=== PATIENT | female | born 1970 | race African-American/Black ===

== ENCOUNTER 2018-01-05 13:05 | Outpatient (CLI) | payer OTHER ==
--- NOTE | 2018-01-05 17:42 | ULT ---
LEFT BREAST ULTRASOUND: 01/05/18 HISTORY: Abnormal mammogram. Palpable abnormality. COMPARISON: Mammogram same day. FINDINGS: Corresponding to the palpable abnormality is a well defined wider than tall cyst. The patient has dexter n over this area. This measures 2.2 x 1.2 cm. IMPRESSION: BIRADS 2: Benign Finding(s) Routine annual screening mammography (for women over age 40). Continued annual mammographic screening is recommended. If patient continues to have pain, an ultras ound guided aspiration can be performed for the patient's pain benefit. POS: OFF
== END 2018-01-05 13:06 | disposition home or self-care (01) ==
LOC: BICMAMMO 13:05
PROVIDERS: ATTEND Nurse Practitioner Family
DX: R92.8 Other abnormal and inconclusive findings on diagnostic imaging of breast (principal)
CPT/HCPCS: 77066; G0279

== ENCOUNTER 2018-01-08 08:07 | Outpatient (CLI) | payer OTHER ==
--- NOTE | 2018-01-08 10:34 | ULT ---
THYROID SONOGRAM: HISTORY: Hyperthyroidism. FINDINGS: Right thyroid lobe is 5.1 cm length. At the inferior pole are 2 small hypoechoic lesions measuring u p to 1.7 cm. The isthmus is 0.3 cm. The left thyroid lobe is 4.7 cm with multiple small solid and cystic nodules. The largest is a compl ex cystic lesion centrally that measures up to 0.7 cm. IMPRESSION: Multiple small nonspecific bilateral thyroid lobe nodules without a dominant aggressive lesion. POS: PAUL
--- NOTE | 2018-01-09 09:59 | NM ---
RADIOIODINE THYROID UPTAKE AND SCAN: HISTORY: 47-year-old female with thyrotoxicosis, unspecified, without thyrotoxic crisis. TSH on 12/14/17 was l ess than 0.0025. RADIOPHARMACEUTICAL: 260 microcuries Iodine-123 administered orally. FINDINGS: There is homogeneous tracer distribution in the thyroid gland without focal hot or cold nodules. The 24 hour uptake measures 45%. IMPRESSION: Findings are consistent with hyperthyroid Graves' disease. POS: PAUL
== END 2018-01-08 08:08 | disposition home or self-care (01) ==
LOC: ULT 08:07
PROVIDERS: ATTEND Nurse Practitioner Family
DX: E05.90 Thyrotoxicosis, unspecified without thyrotoxic crisis or storm (principal); E04.2 Nontoxic multinodular goiter
CPT/HCPCS: 76536; 78014; A9516

== ENCOUNTER 2018-09-25 16:40 | Emergency (ER) | payer OTHER, SELFPAY ==
[2018-09-25] MEDS ORDERED: Ondansetron PF 4 MG/2 ML Vial ONE (18:22)
[2018-09-25 18:41] LABS: #Basophils 0.1 thou/uL (0.0-0.2); #Eosinphils 0.1 thou/uL (0.0-0.7); #Lymphocytes 1.7 thou/uL (1.20-3.40); #Monocytes 0.3 thou/uL (0.11-0.59); #Neutrophils 9.3 thou/uL (1.40-6.50); %Basophils 0.6 % (0.0-1.0); %Eosinophils 1.1 % (0.0-10.0); %Monocytes 2.8 % (0.0-10.0); %Neutrophils 80.5 % (42.0-75.0); Hemoglobin 12.4 g/dL (12.0-16.0); Mean Corpuscular HGB CONC 32.7 g/dL (32.0-36.0); Mean Corpuscular Hemoglobin 27.2 pg (27.0-31.0); Mean Corpuscular Volume 83.3 fL (78.0-98.0); Mean Platelet Volume 8.1 fL (7.4-10.4); Platelet Count 296 thou/uL (130-400); RBC Distribution Width 14.6 % (11.5-14.5); Red Blood Cell (RBC) Count 4.57 mill/uL (4.20-5.40); White Blood Cell (WBC) Count 11.5 thou/uL (4.8-10.8)
[2018-09-25 18:51] LABS: Bilirubin Negative (Negative); Blood, Urine 1+ (Negative); Clarity Clear (Clear); Glucose, Urine (Dipstick) Normal (Negative); Leukocyte Negative Leu/uL (Negative); Nitrite Negative (Negative); Protein, Urine (Dipstick) 10 mg/dL (Neg-Trace); Squamous Epithelial 0-3 HPF (0-3); Urobilinogen Normal mg/dL (Less than 2)
[2018-09-25 18:56] LABS: BHCG - Serum Negative (NEGATIVE); Pregs Control Background? CLEAR/WHITE (CLR/WHITE); Pregs Control Bar Appear? YES (CONTROL BAR)
[2018-09-25 18:58] LABS: Bacteria/HPF None Seen HPF (None Seen)
[2018-09-25 19:04] LABS: ALT (SGPT) 19 U/L (8-55); AST (SGOT) 15 U/L (5-34); Albumin 4.2 g/dL (3.5-5.0); Alkaline Phosphatase 147 U/L (40-150); Anion Gap 12 mmol/L (10-20); BUN (Urea Nitrogen) 8 mg/dL (7.0-18.7); Bilirubin, Total 0.7 mg/dL (0.2-1.2); Calc. Creatinine Clearance 0 mL/min (70-130); Calcium 9.8 mg/dL (7.8-10.44); Carbon Dioxide 23 mmol/L (22-29); Chloride 107 mmol/L (98-107); Estimated GFR-MDRD Greater than 90; Globulin 3.2 g/dL (2.4-3.5); Glucose 98 mg/dL (70-105); Lipase 20 U/L (8-78); Potassium 3.3 mmol/L (3.5-5.1); Protein, Total 7.4 g/dL (6.0-8.3); Sodium 139 mmol/L (136-145)
== END 2018-09-25 20:10 | disposition home or self-care (01) ==
LOC: ERS 16:40
DX: R10.9 Unspecified abdominal pain (principal); R19.7 Diarrhea, unspecified; R11.2 Nausea with vomiting, unspecified; J45.909 Unspecified asthma, uncomplicated; F17.210 Nicotine dependence, cigarettes, uncomplicated; I10 Essential (primary) hypertension
CPT/HCPCS: 80053; 81003; 81015; 82274; 83630; 83690; 84703; 85025; 87045; 87046; 87449; 87899; 96361; 96372; 96374; J0500; J2405

== ENCOUNTER 2019-05-24 10:42 | Outpatient (CLI) | payer SELFPAY ==
--- NOTE | 2019-05-24 13:15 | RAD ---
SUPINE ABDOMEN: Date: 05/24/2019 INDICATION: Epigastric pain. FINDINGS: Scattered stool and gas throughout the colon. The bowel gas pattern is unremarkable. Post cholecystec verónica clips. No mass or abnormal calcification. IMPRESSION: Unremarkable bowel gas pattern. POS: PAUL
[2019-05-27 17:37] LABS: H. pylori IgA ABS 11.9 units (0.0-8.9); H. pylori IgG ABS 5.93 (0.00-0.79); H. pylori IgM ABS Less than 9.0 units (0.0-8.9)
== END 2019-05-24 10:43 | disposition home or self-care (01) ==
LOC: SCSRAD 10:42
PROVIDERS: ATTEND Nurse Practitioner Family
DX: R10.13 Epigastric pain (principal)
CPT/HCPCS: 36415; 74018

== ENCOUNTER 2019-07-05 10:19 | Outpatient (CLI) | payer OTHER ==
--- NOTE | 2019-07-05 11:01 | MMO ---
Bilateral MAMMO Bilat Diag [facility]. CLINICAL HISTORY: Patient is 49 years old and is seen for diagnostic exam and palpable abnormality in the left breast. The patient has no family history of breast cancer. The patient has no personal history of cancer. VIEWS: The views performed were: bilateral craniocaudal with tomosynthesis; bilateral mediolateral oblique with tomosynthesis; bilateral mediolateral with tomosynthesis; and left mediolateral. FILMS COMPARED: The present examination has been compared to prior imaging studies performed at [facility] on 07/13/2011, 01/05/2018 and 07/05/2019. This study has been interpreted with the assistance of computer-aided detection. MAMMOGRAM FINDINGS: The breasts are heterogeneously dense, which could obscure a lesion on mammography. There is an equal density, lobular mass measuring 30 millimeters seen in the left breast at 2 o'clock. Mass correlates to the palpable abnormality in the left breast at 2 o'clock. The mass was shown to be a cyst on ultrasound. Multiple cysts seen in the upper outer quadrant of the left breast in the region of palpable abnormality. (see ultrasound report for sizes) There are no suspicious masses, suspicious calcifications, or new areas of architectural distortion. IMPRESSION: THERE IS NO MAMMOGRAPHIC EVIDENCE OF MALIGNANCY. THE FINDINGS AND RECOMMENDATIONS WERE DISCUSSED WITH THE PATIENT PRIOR TO HER LEAVING THE CENTER. A ROUTINE FOLLOW-UP MAMMOGRAM IN 1 YEAR IS RECOMMENDED. THE RESULTS OF THIS EXAM WERE SENT TO THE PATIENT. ACR BI-RADS Category 2 - Benign finding MAMMOGRAPHY NOTE: 1. A negative mammogram report should not delay a biopsy if a dominant of clinically suspicious mass is present. 2. Approximately 10% to 15% of breast cancers are not detected by mammography. 3. Adenosis and dense breasts may obscure an underlying neoplasm. Reported by: TRAVIS GRANDE MD Electonically Signed: [id number]
--- NOTE | 2019-07-05 14:04 | ULT ---
LEFT BREAST DIAGNOSTIC ULTRASOUND: 07/05/19 INDICATION: New palpable abnormality of the left breast 2 o'clock position. COMPARISON: Prior diagnostic evaluation, 01/05/18. FINDINGS: Corresponding to the palpable region of interest are multiple cysts. The two largest measure 3.2 x 1. 6 cm and 2.2 x 1.5 cm. IMPRESSION: BIRADS 2: Benign Finding(s) Routine annual screening mammography (for women over age 40). Multiple large cysts seen within the palpable region of interest.
== END 2019-07-05 10:20 | disposition home or self-care (01) ==
LOC: BICMAMMO 10:19
PROVIDERS: ATTEND Nurse Practitioner Family
DX: N63.20 Unspecified lump in the left breast, unspecified quadrant (principal); N60.02 Solitary cyst of left breast
CPT/HCPCS: 77066; G0279

== ENCOUNTER 2021-12-14 09:02 | Outpatient (CLI) | payer OTHER | END 2021-12-14 09:03 | disposition home or self-care (01) | LOC: NM 09:02 | PROVIDERS: ATTEND Nurse Practitioner Family | DX: E05.90 Thyrotoxicosis, unspecified without thyrotoxic crisis or storm (principal); E04.1 Nontoxic single thyroid nodule | CPT/HCPCS: 76536; 78014 ==

== ENCOUNTER 2022-02-02 22:05 | Inpatient (IN) | payer OTHER ==
[2022-02-02 22:35] LABS: Hemoglobin 13.2 g/dL (12.0-16.0); Mean Corpuscular HGB CONC 33.6 g/dL (32.0-36.0); Mean Corpuscular Hemoglobin 28.4 pg (27.0-31.0); Mean Corpuscular Volume 84.5 fl (78.0-98.0); Mean Platelet Volume 8.1 fL (7.4-10.4); Platelet Count 283 10x3/uL (130-400); RBC Distribution Width 14.1 % (11.5-14.5); Red Blood Cell (RBC) Count 4.64 mill/uL (4.20-5.40); White Blood Cell (WBC) Count 19.6 10x3/uL (4.8-10.8)
[2022-02-02 22:55] LABS: ALT (SGPT) 12 U/L (8-55); AST (SGOT) 13 U/L (5-34); Albumin 4.4 g/dL (3.5-5.0); Alkaline Phosphatase 153 U/L (40-110); Anion Gap 10 mmol/L (10-20); BUN (Urea Nitrogen) 8 mg/dL (7.0-18.7); Bilirubin, Total 0.6 mg/dL (0.2-1.2); Calc. Creatinine Clearance 0 mL/min (70-130); Calcium 9.4 mg/dL (7.8-10.44); Carbon Dioxide 25 mmol/L (22-29); Chloride 107 mmol/L (98-107); Estimated GFR 93; Globulin 3.2 g/dL (2.4-3.5); Glucose 107 mg/dL (70-105); Potassium 3.2 mmol/L (3.5-5.1); Protein, Total 7.6 g/dL (6.0-8.3); Sodium 139 mmol/L (136-145)
[2022-02-02 23:03] LABS: Band 1 % (5-11); Lymphocytes 54 % (21-51); MDiff Complete? YES; Monocytes 3 % (0-10); Neutrophil 42 % (42-75); Platelet Morphology Comment Appears Adequate; RBC Morphology Normal
[2022-02-03] MEDS ORDERED: Aspirin Chewable 81 MG TAB ONE (00:22)
[2022-02-03] MEDS ORDERED: Nitroglycerin 0.4 MG TAB 1 EACH ONE (00:22)
[2022-02-03] MEDS ORDERED: Propranolol 60 MG TAB PO SCH (00:30)
[2022-02-03] MEDS ORDERED: Acetaminophen 325 MG TAB PO PRN (01:47)
[2022-02-03] MEDS ORDERED: HYDROcodone/Acetaminophen 5/325 mg Tablet PO PRN (01:47)
[2022-02-03] MEDS ORDERED: Methimazole 10 MG TAB PO SCH ×6 (02:00→06:00)
[2022-02-03] MEDS ORDERED: Hydrocortisone Sod Succ/PF 100 mg/2 ml Vial IVP SCH ×4 (02:00→10:00)
[2022-02-03 02:03] LABS: Troponin I 0.014 ng/mL (< 0.028)
[2022-02-03] MEDS: Hydrocortisone Sod Succ/PF 100 mg/2 ml Vial IVP SCH ×2 (02:40→02:41)
[2022-02-03 02:45] VITALS: BMI 31.2
[2022-02-03] MEDS ORDERED: Morphine 4 MG/ML VIAL SLOW IVP PRN (03:03)
[2022-02-03 03:09] LABS: Free T4 (Free Thyroxine) 1.08 ng/dL (0.70-1.48)
[2022-02-03 04:34] LABS: #Basophils 0.1 thou/uL (0.0-0.2); #Eosinphils 0.1 thou/uL (0.0-0.7); #Lymphocytes 3.7 thou/uL (1.20-3.40); #Monocytes 0.2 thou/uL (0.11-0.59); #Neutrophils 9.5 thou/uL (1.40-6.50); %Basophils 0.8 % (0.0-1.0); %Eosinophils 0.7 % (0.0-10.0); %Lymphocytes 27.3 % (21.0-51.0); %Monocytes 1.7 % (0.0-10.0); %Neutrophils 69.5 % (42.0-75.0); Hemoglobin 11.4 g/dL (12.0-16.0); Mean Corpuscular HGB CONC 33.1 g/dL (32.0-36.0); Mean Corpuscular Hemoglobin 28.3 pg (27.0-31.0); Mean Corpuscular Volume 85.5 fl (78.0-98.0); Mean Platelet Volume 7.8 fL (7.4-10.4); Platelet Count 231 10x3/uL (130-400); RBC Distribution Width 14.1 % (11.5-14.5); Red Blood Cell (RBC) Count 4.02 mill/uL (4.20-5.40); White Blood Cell (WBC) Count 13.7 10x3/uL (4.8-10.8)
[2022-02-03 04:50] LABS: ALT (SGPT) 10 U/L (8-55); AST (SGOT) 11 U/L (5-34); Albumin 3.8 g/dL (3.5-5.0); Alkaline Phosphatase 130 U/L (40-110); Anion Gap 10 mmol/L (10-20); BUN (Urea Nitrogen) 9 mg/dL (7.0-18.7); Bilirubin, Total 0.5 mg/dL (0.2-1.2); Calc. Creatinine Clearance 150 mL/min (70-130); Calcium 8.7 mg/dL (7.8-10.44); Carbon Dioxide 23 mmol/L (22-29); Chloride 110 mmol/L (98-107); Estimated GFR 107; Globulin 2.7 g/dL (2.4-3.5); Glucose 118 mg/dL (70-105); Potassium 4.4 mmol/L (3.5-5.1); Protein, Total 6.5 g/dL (6.0-8.3); Sodium 139 mmol/L (136-145)
[2022-02-03 04:54] LABS: Troponin I 0.011 ng/mL (< 0.028)
[2022-02-03 05:17] LABS: Free T4 (Free Thyroxine) 1.06 ng/dL (0.70-1.48); Thyroid Stimulating Hormone Less than 0.0025 uIU/mL (0.35-4.94)
[2022-02-03] MEDS ORDERED: Regadenoson 0.4 MG/5 ML SYRINGE ONE (08:17)
[2022-02-03 08:29] LABS: Bacteria/HPF None Seen HPF (None Seen); Bilirubin Negative (Negative); Blood, Urine Negative (Negative); CAUTI Indications for Culture Dysuria,urgency,freq; Clarity Clear (Clear); Glucose, Urine (Dipstick) Normal (Negative); Ketone, Urine Negative (Negative); Leukocyte 25 Leu/uL (Negative); Nitrite Negative (Negative); Protein, Urine (Dipstick) Negative (Neg-Trace); RBC/HPF 0-3 HPF (0-3); Specific Gravity, Urine 1.015 (1.002-1.036); Squamous Epithelial 0-3 HPF (0-3); Urine Culture Reflex No No; Urobilinogen Normal mg/dL (Less than 2); WBC/HPF 0-3 HPF (0-3)
[2022-02-03] MEDS ORDERED: Famotidine 20 MG TAB PO SCH ×2 (09:00)
[2022-02-03] MEDS ORDERED: FLU VACC QS2022-23(6MOS UP)/PF 60 MCG/0.5 ML SYRINGE IM ONE (09:00)
[2022-02-03] MEDS ORDERED: Bupropion 150 MG SR TAB PO SCH (09:00)
[2022-02-03] MEDS ORDERED: Aspirin 81 mg Enteric Coated Tablet PO SCH (09:00)
[2022-02-03] MEDS: Propranolol HCl LA 60 MG CAP PO SCH ×2 (09:26→10:38)
[2022-02-03] MEDS: Methimazole 10 MG TAB PO SCH ×2 (14:14→17:01)
[2022-02-03 15:24] VITALS: BP 135/84; TEMP 97.8
== END 2022-02-03 17:25 | disposition home or self-care (01) | DRG 645 ==
LOC: ERS 22:05 → 2NO 02-03 01:25
PROVIDERS: ADMIT Internal Medicine Nephrology; ATTEND Family Medicine
DX: E05.21 Thyrotoxicosis with toxic multinodular goiter with thyrotoxic crisis or storm (principal); I10 Essential (primary) hypertension; F32.A Depression, unspecified; Z20.822 Contact with and (suspected) exposure to COVID-19; J45.909 Unspecified asthma, uncomplicated; Z90.49 Acquired absence of other specified parts of digestive tract; Z98.51 Tubal ligation status
CPT/HCPCS: 36415; 71045; 78452; 80053; 81001; 84439; 84443; 84481; 84484; 85025; 85379; 87040; 90471; 90732; 93005; 93017; 94640; A9500; G0009; J1720; J2785; J7620; U0003; U0005

== ENCOUNTER 2022-03-04 10:53 | Emergency (ER) | payer OTHER ==
[~2022-03-04 10:53] MED LIST: Iopamidol-370 76% 500 ML 1 ML ONE
[2022-03-04] MEDS ORDERED: Ondansetron PF 4 MG/2 ML Vial ONE (11:50)
[2022-03-04 12:16] LABS: #Lymphocytes 1.7 thou/uL (1.20-3.40); #Monocytes 0.6 thou/uL (0.11-0.59); #Neutrophils 15.1 thou/uL (1.40-6.50); %Basophils 0.2 % (0.0-1.0); %Eosinophils 0.1 % (0.0-10.0); %Lymphocytes 9.9 % (21.0-51.0); %Monocytes 3.6 % (0.0-10.0); %Neutrophils 86.1 % (42.0-75.0); Hemoglobin 14.1 g/dL (12.0-16.0); Mean Corpuscular HGB CONC 34.3 g/dL (32.0-36.0); Mean Corpuscular Hemoglobin 28.6 pg (27.0-31.0); Mean Corpuscular Volume 83.4 fl (78.0-98.0); Mean Platelet Volume 8.2 fL (7.4-10.4); Platelet Count 264 10x3/uL (130-400); RBC Distribution Width 15.5 % (11.5-14.5); Red Blood Cell (RBC) Count 4.93 mill/uL (4.20-5.40); White Blood Cell (WBC) Count 17.5 10x3/uL (4.8-10.8)
[2022-03-04 12:30] LABS: Bacteria/HPF None Seen HPF (None Seen); Bilirubin Negative (Negative); Blood, Urine 1+ (Negative); Clarity Clear (Clear); Glucose, Urine (Dipstick) Normal (Negative); Ketone, Urine Negative (Negative); Leukocyte Negative Leu/uL (Negative); Nitrite Negative (Negative); Protein, Urine (Dipstick) 20 mg/dL (Neg-Trace); RBC/HPF 0-3 HPF (0-3); Specific Gravity, Urine 1.015 (1.002-1.036); Squamous Epithelial 0-3 HPF (0-3); Urobilinogen Normal mg/dL (Less than 2); WBC/HPF 0-3 HPF (0-3)
[2022-03-04 12:31] LABS: ALT (SGPT) 17 U/L (8-55); AST (SGOT) 17 U/L (5-34); Albumin 4.6 g/dL (3.5-5.0); Alkaline Phosphatase 151 U/L (40-110); Anion Gap 14 mmol/L (10-20); BUN (Urea Nitrogen) 7 mg/dL (7.0-18.7); Bilirubin, Total 1.5 mg/dL (0.2-1.2); Calc. Creatinine Clearance 0 mL/min (70-130); Calcium 9.9 mg/dL (7.8-10.44); Carbon Dioxide 23 mmol/L (22-29); Chloride 102 mmol/L (98-107); Estimated GFR 107; Globulin 3.6 g/dL (2.4-3.5); Glucose 106 mg/dL (70-105); Lipase 7 U/L (8-78); Magnesium 1.8 mg/dL (1.6-2.6); Potassium 3.5 mmol/L (3.5-5.1); Protein, Total 8.2 g/dL (6.0-8.3); Sodium 135 mmol/L (136-145)
[2022-03-04 12:32] LABS: BHCG - Serum Indeterminate (NEGATIVE); Pregs Control Background? CLEAR/WHITE (CLR/WHITE); Pregs Control Bar Appear? YES (CONTROL BAR)
[2022-03-04] MEDS ORDERED: Ketorolac Tromethamine 30 MG/ML VIAL ONE (13:04)
[2022-03-04] MEDS ORDERED: HYDROcodone/Acetaminophen 5/325 mg Tablet ONE (14:01)
[2022-03-04] MEDS ORDERED: Cyclobenzaprine 10 MG TAB ONE (14:02)
== END 2022-03-04 15:53 | disposition home or self-care (01) ==
LOC: ERS 10:53
DX: R10.814 Left lower quadrant abdominal tenderness (principal); R11.0 Nausea; R51.9 Headache, unspecified; B34.9 Viral infection, unspecified; I10 Essential (primary) hypertension; F17.210 Nicotine dependence, cigarettes, uncomplicated
CPT/HCPCS: 36415; 71045; 74177; 80053; 81003; 81015; 83605; 83690; 83735; 84443; 84702; 84703; 85025; 96361; 96374; 96375; J1885; J2405

== ENCOUNTER 2022-04-06 12:17 | Emergency (ER) | payer OTHER ==
[2022-04-06] MEDS ORDERED: Boostrix 0.5 ML (Tdap) VIAL (>/=7 yrs of age) ONE (12:57)
== END 2022-04-06 13:25 | disposition home or self-care (01) ==
LOC: ERS 12:17
DX: S61.401A Unspecified open wound of right hand, initial encounter (principal); I10 Essential (primary) hypertension; F17.210 Nicotine dependence, cigarettes, uncomplicated; W26.0XXA Contact with knife, initial encounter; Z23 Encounter for immunization
CPT/HCPCS: 90471; 90715

== ENCOUNTER 2024-09-27 08:46 | Outpatient (CLI) | payer OTHER | END 2024-09-27 08:47 | disposition home or self-care (01) | LOC: ULT 08:46 | PROVIDERS: ATTEND Family Medicine | DX: R79.89 Other specified abnormal findings of blood chemistry (principal); K76.89 Other specified diseases of liver; N28.1 Cyst of kidney, acquired; R93.2 Abnormal findings on diagnostic imaging of liver and biliary tract | CPT/HCPCS: 76700 ==